=== PATIENT | male | born 1995 | race Hispanic/Latino ===

== ENCOUNTER 2018-05-06 10:56 | Emergency (ER) | payer BC ==
[~2018-05-06] VITALS: Ht 188 cm; Wt 117.9 kg
--- NOTE | 2018-05-06 11:33 | NUR ---
3 SUTURES PLACED IN RIGHT HAND/ THUMB BLEEDING CONTROLLED, ANTIBIOTIC OINMENT AND DRESSING APPLIED.
[2018-05-06 11:36] VITALS: BP 135/88
[2018-05-06] MEDS ORDERED: TETANUS/DIPHTHERIA TOX ADULT 0.5 ML SYR IM ONE (11:45)
== END 2018-05-06 12:06 | disposition home or self-care (01) ==
LOC: FSED 10:56
DX: S61.411A Laceration without foreign body of right hand, initial encounter (principal); W26.0XXA Contact with knife, initial encounter; Y99.0 Civilian activity done for income or pay
CPT/HCPCS: 90471; 90714; 99284

== ENCOUNTER 2018-05-16 12:45 | Emergency (ER) | payer BC ==
[~2018-05-16] VITALS: Ht 165.1 cm; Wt 90.7 kg
[2018-05-16 13:27] VITALS: BP 110/78
== END 2018-05-16 13:30 | disposition home or self-care (01) ==
LOC: FSED 12:45
DX: Z48.02 Encounter for removal of sutures (principal)
CPT/HCPCS: 99282